=== PATIENT | male | born 1950 | race Caucasian/White ===

== ENCOUNTER 2017-03-14 10:13 | Emergency (ER) | payer OTHER ==
[2017-03-14] MEDS ORDERED: ONDANSETRON 4 MG/2 ML VIAL ONE (10:26)
[2017-03-14] MEDS ORDERED: OXYMETAZOLINE 30 ML NASAL SPRAY ONE (10:26)
[2017-03-14] MEDS ORDERED: OXYMETAZOLINE 30 ML NASAL SPRAY EACHNARE ONE (10:30)
[2017-03-14] MEDS ORDERED: ONDANSETRON 4 MG/2 ML VIAL IVP ONE (10:30)
[2017-03-14] MEDS ORDERED: NS 1,000 ML IV ONE ×2 (10:30→13:04)
[2017-03-14] MEDS ORDERED: SILVER NITRATE APPLICATOR 1 APPL TP ONE ×2 (10:32→10:33)
[2017-03-14] MEDS ORDERED: LIDO/EPI 2%** Not for Epidural 20 ML MDV ONE (10:35)
[2017-03-14] MEDS ORDERED: LIDOCAINE/EPINEPHRINE 0.5% 50 ML MDV NB ONE (10:36)
[2017-03-14 10:43] VITALS: PULSE 85; RESP 18; TEMP 98
[2017-03-14] MEDS ORDERED: COCAINE HCL 4% 4 ML BTL TP ONE (10:43)
--- NOTE | 2017-03-14 10:46 | UCPHY ---
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 Patient has had intermittent bloody noses for the past several days when he wakes up in the morning but they have all stopped on their own until today. He woke up around 7 began bleeding and then stopped but then started again. Now he is nauseated and continues to drift down his throat despite pressure. He denies any trauma but his thinks he could been picking his nose. He has been sleeping with a humidifier. REVIEW OF SYSTEMS: Limited by the patient's disabilities of deafness and blindness Smoking Status: Never smoked Constitutional: Initial Vital Signs Temperature (C) 36.6 C 03/14/17 10:41 Heart Rate 85 03/14/17 10:41 Respiratory Rate 18 03/14/17 10:41 Blood Pressure 180/85 H 03/14/17 10:41 O2 Sat (%) 96 03/14/17 10:41 O2 Delivery Mode Room Air Allergies/Adverse Reactions: terazosin Allergy (Verified 11/14/15 14:47) Home Medications: Medication Instructions Recorded Cholecalciferol (Vitamin D3) 5,000 unit PO DAILY 11/14/15 [Vitamin D3] Ciprofloxacin HCl [Cipro] 500 mg PO BID 11/14/15 Herbals/Supplements -Info Only 1 ea PO DAILY 11/14/15 [place]-3 Fatty Acids/Fish Oil [Fish 1 each PO DAILY 11/14/15 Oil 1,000 mg Capsule] Pravastatin Sodium [Pravachol] 40 mg PO HS 11/14/15 Tamsulosin HCl [Flomax 0.4 MG (*)] 0.4 mg PO DAILY 11/14/15 traMADol [Ultram 50 mg (*)] 50 mg PO Q6 PRN #30 tab 11/15/15 Medical Decision Making Procedures: Procedure: Epistaxis control. After verbal consent was obtained, the patient was treated with topical oxymetazoline and then anesthetized with topical lidocaine plus epinephrine and then topical cocaine. The anterior epistaxis was identified. The patient was treated with silver nitrate cautery. Following the procedure the patient was re -examined and the bleeding was well controlled. The patient tolerated the procedure well. The procedure was performed by myself. ED Course/Re-evaluation: Patient presents with ongoing epistaxis. Patient presented with ongoing bleeding and vomited blood and was feeling nauseated. An IV was placed and he was given IV Zofran with improvement in his nausea. Patient was hemodynamically stable. CBC was within normal limits. Anterior bleeding site at Kiesselbach's plexus was identified and cauterized and bleeding was controlled. Patient was discharged home in improved condition and I discussed home care and return precautions with the patient's . - Data Points Laboratory Results: Laboratory Results 03/14/17 10:22 03/14/17 10:22 03/14/17 03/14/17 10: 10:22 WBC 6.43 10^3/uL 10^3/uL (3.80-9.50) RBC 4.79 10^6/uL 10^6/uL (4.40-6.38) Hgb 16.1 g/dL g/dL (13.7-17.5) Hct 43.8 % % (40.0-51.0) MCV 91.4 fL fL (81.5-99.8) MCH 33.6 pg pg (27.9-34.1) MCHC 36.8 g/dL H g/dL (32.4-36.7) RDW 12.6 % % (11.5-15.2) Plt Count 145 10^3/uL L 10^3/uL (150-400) MPV 9.4 fL fL (8.7-11.7) Neut % (Auto) 64.5 % % (39.3-74.2) Lymph % (Auto) 27.7 % % (15.0-45.0) [place] % (Auto) 6.2 % % (4.5-13.0) Eos % (Auto) 1.1 % % (0.6-7.6) Baso % (Auto) 0.2 % L % (0.3-1.7) Nucleat RBC Rel Count 0.0 % % (0.0-0.2) Absolute Neuts (auto) 4.15 10^3/uL 10^3/uL (1.70-6.50) Absolute Lymphs (auto) 1.78 10^3/uL 10^3/uL (1.00-3.00) Absolute Monos (auto) 0.40 10^3/uL 10^3/uL (0.30-0.80) Absolute Eos (auto) 0.07 10^3/uL 10^3/uL (0.03-0.40) Absolute Basos (auto) 0.01 10^3/uL L 10^3/uL (0.02-0.10) Absolute Nucleated RBC 0.00 10^3/uL 10^3/uL (0-0.01) Immature Gran % 0.3 % % (0.0-1.1) Immature Gran # 0.02 10^3/uL 10^3/uL (0.00-0.10) Sodium 142 mEq/L mEq/L (134-144) Potassium 4.0 mEq/L mEq/L (3.5-5.2) Chloride 99 mEq/L mEq/L (97-110) Carbon Dioxide 26 mEq/l mEq/l (22-31) Anion Gap 17 mEq/L H mEq/L (8-16) BUN 20 mg/dL mg/dL (7-23) Creatinine 1.1 mg/dL mg/dL (0.7-1.3) Estimated GFR > 60 Glucose 118 mg/dL H mg/dL (70-100) Calcium 9.4 mg/dL mg/dL (8.5-10.4) Total Bilirubin 1.0 mg/dL mg/dL (0.1-1.4) AST 31 IU/L IU/L (17-59) ALT 43 IU/L IU/L (21-72) Alkaline Phosphatase 81 IU/L IU/L (38-126) Total Protein 7.8 g/dL g/dL (6.3-8.2) Albumin 4.2 g/dL g/dL (3.5-5.0) Medications Given: Discontinued Medications Cocaine HCl (Cocaine Hcl) 1 prachi TP EDNOW ONE Stop: 03/14/17 10:44 Last Admin: 03/14/17 11:05 Dose: 1 btl Lidocaine/Epinephrine (Xylocaine 0.5%-Epi 1:200,000) 50 ml NB EDNOW ONE Stop: 03/14/17 10:37 Last Admin: 03/14/17 11:06 Dose: 50 ml Ondansetron HCl (Zofran) 4 mg IVP EDNOW ONE Stop: 03/14/17 10:31 Last Admin: 03/14/17 10:37 Dose: 4 mg Oxymetazoline HCl (Afrin Nasal [place]) 2 sprays EACHNARE EDNOW ONE Stop: 03/14/17 10:31 Last Admin: 03/14/17 11:07 Dose: 1 ea Silver Nitrate/Potassium Nitrate (Silver Nitrate Applicator) 1 each TP EDNOW ONE Stop: 03/14/17 10:34 Last Admin: 03/14/17 11:08 Dose: 1 each Departure - Departure Disposition: Home, Routine, Self-Care Clinical Impression: Anterior epistaxis Condition: Good Instructions: Nosebleed (ED) Additional Instructions: You were seen by Dr. Shanel Navas today. Return for any worsening or new concerns. Do not blow or pick her nose for the next 48 hours. If your nose starts bleeding again using try the nasal spray and direct pressure 1st. If you cannot stop the bleeding return to the emergency department. - PQRS PQRS Measurement: NA
[2017-03-14 10:48] LABS: % IMMATURE GRANULYOCYTES 0.3 % (0.0-1.1); ABSOLUTE IMMATURE GRANULOCYTES 0.02 10^3/uL (0.00-0.10); ADD DIFF? NO; ADD MORPH? NO; ADD SCAN? NO; ATYPICAL LYMPHOCYTE FLAG 20 (0-99); FRAGMENT RBC FLAG 0 (0-99); HEMATOCRIT 43.8 % (40.0-51.0); HEMOGLOBIN 16.1 g/dL (13.7-17.5); LEFT SHIFT FLG 0 (0-99); LIPEMIA HEMOLYSIS FLAG 90 (0-99); MEAN CELL HEMOGLOBIN 33.6 pg (27.9-34.1); MEAN CELL HEMOGLOBIN CONCENTR. 36.8 g/dL (32.4-36.7); MEAN CELL VOLUME 91.4 fL (81.5-99.8); MEAN PLATELET VOLUME 9.4 fL (8.7-11.7); PLATELET CLUMPS FLAG 0 (0-99); PLATELET COUNT 145 10^3/uL (150-400); RED BLOOD CELL COUNT 4.79 10^6/uL (4.40-6.38); RED CELL DISTRIBUTION WIDTH 12.6 % (11.5-15.2)
[2017-03-14 11:02] LABS: ALANINE AMINOTRANSFERASE 43 IU/L (21-72); ALBUMIN 4.2 g/dL (3.5-5.0); ALKALINE PHOSPHATASE 81 IU/L (38-126); ANION GAP 17 mEq/L (8-16); ASPARTATE AMINOTRANSFERASE 31 IU/L (17-59); CALCIUM 9.4 mg/dL (8.5-10.4); CARBON DIOXIDE 26 mEq/l (22-31); CHLORIDE 99 mEq/L (97-110); CREATININE 1.1 mg/dL (0.7-1.3); GLOMERULAR FILTRATION RATE > 60; GLUCOSE 118 mg/dL (70-100); SODIUM 142 mEq/L (134-144); TOTAL PROTEIN 7.8 g/dL (6.3-8.2)
[2017-03-14 12:58] VITALS: BP 124/78; O2SAT 97
== END 2017-03-14 12:52 | disposition home or self-care (01) ==
LOC: CED 10:13
PROC: 2Y41X5Z Packing of Nasal Region using Packing Material (ICD-10-PCS; principal; 2017-03-14)
DX: R04.0 Epistaxis (principal)
CPT/HCPCS: 30901-PO; 80053-PO; 85025-PO; 96361-PO; 96374-PO; 99214-PO; G0463-PO; J2405

== ENCOUNTER 2017-03-15 13:31 | Emergency (ER) | payer OTHER ==
[2017-03-15 13:55] VITALS: BP 165/88; PULSE 85; RESP 18; TEMP 99; O2SAT 96
== END 2017-03-15 14:32 | disposition left against medical advice (07) ==
LOC: CED 13:31
DX: R04.0 Epistaxis (principal)